=== PATIENT | male | born 1975 | race Asian ===

== ENCOUNTER → 2016-11-28 | Outpatient (CLI) | payer OTHER | LOC: BMCIMAGING 11:40 | PROVIDERS: ATTEND Family Medicine | DX: M25.532 Pain in left wrist (principal) ==

== ENCOUNTER 2017-11-23 17:27 | Inpatient (IN) | payer OTHER ==
[2017-11-23] MEDS ORDERED: LET GEL TOPICAL 1 EA SYR TP ONE (17:35)
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
[2017-11-23] MEDS ORDERED: IOPAMIDOL (ISOVUE 370) 100 ML BTL IV ONE (18:20)
[2017-11-23 18:53] LABS: PLATELET COUNT 263 10^3/uL (150-400)
[2017-11-23 19:00] LABS: INR 0.98 (0.83-1.16); PROTIME(PATIENT) 13.2 SEC (12.0-15.0)
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
[2017-11-23] MEDS ORDERED: NALOXONE HCL 0.4 MG/ML INJ IVP PRN (20:23)
[2017-11-23] MEDS ORDERED: oxyCODONE IR 5 MG TAB PO PRN (20:26)
[2017-11-23] MEDS ORDERED: ONDANSETRON DISINTEGRATING 4 MG TAB PO PRN (20:27)
[2017-11-23] MEDS ORDERED: ONDANSETRON 4 MG/2 ML VIAL IVP PRN (20:27)
[2017-11-23] MEDS: FAMOTIDINE 20 MG/NACL 50 ML IV SCH (22:22)
[2017-11-23] MEDS: NS 1,000 ML IV SCH (22:25)
[2017-11-23] MEDS ORDERED: BACITRACIN OINTMENT 1 PACKET TP PRN (22:39)
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
[2017-11-24] MEDS: NS 1,000 ML IV SCH ×3 (04:22→22:22)
[2017-11-24 04:51] LABS: PLATELET COUNT 200 10^3/uL (150-400)
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
[2017-11-24] MEDS: FAMOTIDINE 20 MG/NACL 50 ML IV SCH (10:40)
[2017-11-24] MEDS: FAMOTIDINE 20 MG TAB PO SCH ×2 (10:53→20:08)
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
--- NOTE | 2017-11-24 16:02 | SOAPPROG ---
Downtime Inpatient MD Late Entry SOAP Note: Facial CT reviewed. No fractures or malalignment of the TMJ. MRI recommended if symptoms persist He is tolerating liquids and I will advance his diet to full liquids as tolerated. H/H is stable Urology consult appreciated. Eyad Dumont MD, FACS
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
[2017-11-24] MEDS ORDERED: BISACODYL 10 MG SUPP PR PRN (19:30)
[2017-11-24] MEDS ORDERED: POLYETHYLENE GLYCOL 3350 17 GM PKT PO PRN (19:30)
[2017-11-24] MEDS ORDERED: MAGNESIUM HYDROXIDE 30 ML UDCUP PO PRN (19:30)
[2017-11-24] MEDS ORDERED: LACTULOSE 20 GM/30 ML UDCUP PO PRN (19:30)
[2017-11-24] MEDS ORDERED: LACTASE 3,000 UNIT TAB PO PRN (19:48)
[2017-11-24] MEDS ORDERED: LACTASE 9000 UNIT PO PRN (19:51)
[2017-11-24] MEDS: SENNOSIDES/DOCUSATE SODIUM TAB PO SCH (20:08)
[2017-11-25] MEDS: NS 1,000 ML IV SCH (04:45)
[2017-11-25 08:44] VITALS: BP 124/73
--- NOTE | 2017-11-25 09:03 | TRAUMAPN ---
Trauma Progress Note Assessment/Plan: Fractured R kidney- urine output adequate, no hematuria Liver laceration grade III - blood counts stable SAH- nonoperative per neurosurg, no repeat scan indicated Malocclusion of teeth- no fractures seen on CT. Ok to have regular diet. S: No complaints. Feels he's ready to be discharged. Lives at home here in [place] with , who will be around to help him. Hasn't taken anything for pain in last 24 hours. O: Alert Afebrile HENT: pupils equal and round, abrasion to right periorbital area RRR No increased WOB Musculoskeletal: PEDERSON x4. Abrasions to bilateral knees. : good uop Neuro: alert and oriented x3, CN 2-12 grossly intact Psych: appropriate mood and affect Objective: Vital Signs Temp Pulse Resp BP Pulse Ox 37.1 C 76 18 124/73 H 96 11/25/17 08:00 11/25/17 08:00 11/25/17 08:00 11/25/17 08:00 11/25/17 06:00 Laboratory Results 11/25/17 05:30 11/24/17 04:20 11/24/17 11/25/17 11/26/17 05:59 05:59 05:59 Intake Total 1096 3494 Output Total 600 2725 700 Balance 496 769 -700 PT 13.2 SEC (12.0-15.0) 11/23/17 17:30 INR 0.98 (0.83-1.16) 11/23/17 17:30 - C-Spine Clearance Cervical Spine Cleared: Yes Provider who Cleared Cervical Spine: Faraz Evans MD, PhD
[2017-11-25] MEDS: FAMOTIDINE 20 MG TAB PO SCH (09:33)
[2017-11-25] MEDS: SENNOSIDES/DOCUSATE SODIUM TAB PO SCH (09:33)
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
== END 2017-11-25 11:25 | disposition home or self-care (01) | DRG 965 ==
LOC: EDUNIT# → F2N 21:16
PROVIDERS: ADMIT Surgery; ATTEND Surgery
DX: S37.051A Moderate laceration of right kidney, initial encounter (principal); S36.115A Moderate laceration of liver, initial encounter; S06.6X9A Traumatic subarachnoid hemorrhage with loss of consciousness of unspecified duration, initial encounter; R40.2412 Glasgow coma scale score 13-15, at arrival to emergency department; M26.4 Malocclusion, unspecified; V18.0XXA Pedal cycle driver injured in noncollision transport accident in nontraffic accident, initial encounter; Y93.55 Activity, bike riding; Z23 Encounter for immunization
CPT/HCPCS: 82435-PO; 82565-PO; 82947-PO; 84132-PO; 84295-PO; 84484-PO; 84520-PO; 85014-PO; 92523-GN; 97162-GP; 97165-GO; 97535-GO; G0008; J2270; L3807; L3984; Q9967